=== PATIENT | female | born 1960 | race Caucasian/White ===

== ENCOUNTER 2020-02-08 13:24 | Emergency (ER) | payer OTHER ==
[~2020-02-08] VITALS: Ht 170.2 cm; Wt 97.1 kg
[~2020-02-08 13:24] MED LIST: BACLOFEN20 MG PO; BUTRANS1 EACH TD; LYRICA200 MG PO; METHOCARBAMOL750 MG PO; OXYCODONE HCL20 M1 PO; PROMETHAZINE HC25 M1 PO; PROZAC40 MG PO; SERTRALINE HCL50 MG PO; TRIAZOLAM0.125 MG PO
[2020-02-08] MEDS ORDERED: ONDANSETRON HCL INJ 2MG/ML 2ML 2 MG/ML VIAL IV STA (13:59)
[2020-02-08] MEDS ORDERED: MORPHINE SULFATE INJ 4 MG/ML INJ 1ML IV PRN (14:00)
[2020-02-08 14:11] LABS: BASOPHILS % 0.3 % (0.0-1.0); HEMATOCRIT 43.7 % (34.2-44.1); HEMOGLOBIN 13.4 g/dL (12.0-16.0); LYMPHOCYTES # (AUTO) 2.2 (1.0-3.2); LYMPHOCYTES % 20.4 % (18.0-39.1); MEAN CORPUSCULAR HEMOGLOBIN 25.1 pg (28-32); MEAN CORPUSCULAR HGB CONC 30.7 g/dL (31-35); MEAN CORPUSCULAR VOLUME 81.8 fL (81-99); MONOCYTES # (AUTO) 0.8 (0.2-0.8); MONOCYTES % 7.7 % (4.4-11.3); NEUTROPHILS # (AUTO) 7.7 (2.1-6.9); NEUTROPHILS % 71.2 % (38.7-80.0); PLATELET COUNT 223 x10e3/uL (140-360); RED BLOOD COUNT 5.34 x10e6/uL (3.6-5.1); RED CELL DISTRIBUTION WIDTH 17.1 % (11.7-14.4)
[2020-02-08] MEDS ORDERED: MORPHINE SULFATE 2 MG/ML SYR 1ML IV PRN (14:15)
[2020-02-08] MEDS ORDERED: DIATRIZOATE MEGL/DIATRIZOA SOD 30 ML BTL PO ONE (14:24)
[2020-02-08 14:28] LABS: ALANINE AMINOTRANSFERASE 12 IU/L (0-55); ALBUMIN 4.1 g/dL (3.5-5.0); ALBUMIN/GLOBULIN RATIO 1.4 (0.8-2.0); ALKALINE PHOSPHATASE 85 IU/L (40-150); AMYLASE 14 U/L (25-125); ANION GAP 15.4 mmol/L (8-16); BLOOD UREA NITROGEN 18 mg/dL (7-26); BUN/CREATININE RATIO 23 (6-25); CALCIUM 9.7 mg/dL (8.4-10.2); CARBON DIOXIDE 27 mmol/L (22-29); CHLORIDE 102 mmol/L (98-107); EST GLOMERULAR FILTRATION RATE > 60 ML/MIN (60-); GLUCOSE 132 mg/dL (74-118); LIPASE 10 U/L (8-78); POTASSIUM 4.4 mmol/L (3.5-5.1); SODIUM 140 mmol/L (136-145)
--- OUTSIDE RECORDS SUMMARY | 2020-02-08 15:19 | XMS REPORT | Continuity of Care Document ---
Author Author [facility] t Organization [facility] Address 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 Automatic Name Role Phone Hawk PATRICK, Manuel Horvath Attphys Robert Rankin Attphys Yulia Morrison Attphys Unavailable Dominga Ward Attphys Cherri Whittaker Attphys Unavailable Abby Alvarado Attphys Unavailable Doctor Unassigned, Name No Attphys Unavailable Lakshmi Rasmussen Attphys Unavailable Karin Alejandra Attphys Unavailable Lesly Eddy Attphys Status, Fax Attphys Unavailable LeonardEduardo sweeneyda Attphys Valero-SacAna doss Attphys Unavailable Marco, Candy Attphys Unavailable Suzanne Hodge Attphys Unavailable Dima Russell Attphys GurrolaGerhard mcrae Attphys Unavailable Satish, Zoe Attphys Unavailable Balbmikki, Zayda Attphys Abby Bro Attphys Unavailable JackmanRyan chowdhurylermo Attphys Unavailable Jeanine Freedman Attphys Unavailable Alphonse Mari Attphys BermudezVeena saldana Attphys Unavailable Valerio Lopez Attphys Unavailable Dima Russell Unavailable Robert Rankin Unavailable Alphonse Mari Unavailable Payers Payer Name Policy Type Policy Number Effective Date Expiration Date S ource Problems Condition Name Condition Details Condition Category Status Onset Date Resolution Date Last Treatment Date Treating Clinician Comments Source Danielle hirschhorn syndrome Condition Active 2017-10-29 00: 00:00 2017-10-29 16:01:13 Zakiya Russlel [facility] 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 12-09-25 15:55:[facility] DEPRESSIVE DISORDER, MAJOR, RECURRENT EPISODE, MODERATE Condition Active 2017-03-06 00:00:00 2017-10-29 15:55:46 Kamaljit [facility] Allergies, Adverse Reactions, Alerts Allergy Name Allergy Type Status Severity Reaction(s) Onset Date Inacti ve Date Treating Clinician Comments Source IBUPROFEN Drug allergy (disorder) Active 2017-06-04 00:00:0 0 [facility] PENICILLIN Drug allergy (disorder) Active High Criticality 2017-06-04 00:00:00 [facility] NSAIDS (Non-Steroidal Anti-Inflamma DA Active U 2015-10-06 9 00:00:00 [facility] Penicillins DA Active SV 2015-11-02 00:00:00 [facility] prednisone DA Active [place] 2015-11-02 00:00:00 [facility] ibuprofen DA Active MO 2015-11-02 00:00:00 [facility] naproxen DA Active [place] 2015-11-02 00:00:00 [facility] Social History Social Habit Start Date Stop Date Quantity Comments Source smoking, advice to quit 2019-12-29 15:35:43 2019-12-29 15:35:43 Yes [facility] tobacco use (cigarettes, cigar, chew, pipe) 2019-12-29 15:35 :43 2019-12-29 15:35:43 Currently [facility] social history reviewed E&M 2018-02-12 13:06:00 2018-02-12 13:06 :00 reviewed today [facility] social history E&M 2018-02-12 13:06:00 2018-02-12 13:06:00 ed, of 16 years 2013 after being deported. has 36 yo dtr, 27 yo son, 22 yo dtr (age as of 03/2017); cites her best friend as her primary support as well as her children City: [place]. State: [place]. Lives with son, son's gfNot employed. On disability 2/2 mental health concerns starting in 2000 Fin HS, no college Sex at : Female. Sexual orientation: Heterosexual. Gender identity: Female. Gender of partner(s): Male. [facility] drug use, illicit 2017-10-29 15:36:51 2017-10-29 15:36:51 Never [facility] alcohol use 2017-10-29 15:36:51 2017-10-29 15:36:51 Previously [facility] is there any chance that you could be ? 2017-10-29 1 5:36:51 2017-10-29 15:36:51 No [facility] passive cigarette smoke exposure 2017-10-29 15:36:51 2017-10-29 15:36 :51 No [facility] home/family situation, assessment 2017-06-04 09:59:59 2017-06-04 09:59:59 Lives with son, son's gf [facility] sexual orientation 2017-03-05 12:39:14 2017-03-05 12:39:14 Heterosexu al [facility] sex at 2017-03-05 12:39:14 2017-03-05 12:39:14 Female [facility] family support 2017-03-05 12:39:14 2017-03-05 12:39:14 , of 16 years 2013 after being deported. has 36 yo dtr, 27 yo son, 22 yo dtr (age as of 03/2017); cites her best friend as her primary support as well as her children [facility] Smoking Status Start Date Stop Date Source Smokes tobacco daily (finding) 2019-12-29 15:35:43 [facility] Medications Ordered Medication Name Filled Medication Name Start Date Stop Da te Current Medication? Ordering Clinician Indication Dosage Frequency Signature (SIG) Comments Components Source WELLBUTRIN SR (BUPROPION HCL) 100 MG [id number] 2018-08-19 00:00:00 Yes Robert Rankin 1{Tablet} 2xD Take 1 tab By Mouth Twice a Day [facility] (GABAPENTIN) 600 MG TABS 2018-06-13 00:00:00 Yes Stu Rankin 1{Tablet} 3xD TAKE 1 TABLET BY MOUTH THREE TIMES DAILY [facility] REMERON (MIRTAZAPINE) 15 MG TABS 2017-06-04 00:00:00 05-11 00:00:00 No Robert Alconevi Take 1/2 tablet By Mouth take at bed time [facility] PROZAC (FLUOXETINE HCL) 20 MG CAPS 2017-03-05 00:00:00 Y es Robert Rondonevi Take one capsule Twice a Day [facility] ATIVAN (LORAZEPAM) 0.5 MG TABS 2017-03-05 00:00:00 2018-02-12 00 :00:00 No Take 1/2 to 1 tab By Mouth Three Times a Day As Needed for extreme anxiety [facility] Vital Signs Vital Name Observation Time Observation Value Comments Source blood pressure, diastolic 2019-07-10 11:31:28 83 mm[Hg] [facility] blood pressure, systolic 2019-07-10 11:31:28 137 mm[Hg] [facility] pulse rate 2019-07-10 11:31:28 118 /min [facility] [employer] weight E&M 2019-07-10 11:31:28 257.50 [lb_av] [facility] weight in kilograms E&M 2019-07-10 11:31:28 117.05 kg [facility] height in centimeters E&M 2019-07-10 11:31:28 170.18 cm [facility] blood pressure, diastolic 2019-05-11 12:12:44 74 mm[Hg] [facility], systolic 2019-05-11 12:12:44 105 mm[Hg] [facility] pulse rate 2019-05-11 12:12:44 121 /min [facility] 2019-05-11 12:12:44 246.38 [lb_av] [facility] weight in kilograms E&M 2019-05-11 12:12:44 111.99 kg [facility] height in centimeters E&M 2019-05-11 12:12:44 170.18 cm [facility] blood pressure, diastolic 2019-03-11 13:36:33 86 mm[Hg] [facility] blood pressure, systolic 2019-03-11 13:36:33 145 mm[Hg] [facility] pulse rate 2019-03-11 13:36:33 123 /[facility] 2019-03-11 13:36:33 252 [lb_av] [facility] weight in [facility] E&M 2019-03-11 13:36:33 114.55 kg [facility] height in centimeters E&M 2019-03-11 13:36:33 170.18 cm [facility] blood pressure, diastolic 2019-01-14 13:10:30 86 mm[Hg] [facility] blood pressure, systolic 2019-01-14 13:10:30 123 mm[Hg] [facility] pulse rate 2019-01-14 13:10:30 127 /min [facility]&M 2019-01-14 13:10:30 248.50 [lb_av] [facility] weight in kilograms E&M 2019-01-14 13:10:30 112.95 kg [facility] height in centimeters E&M 2019-01-14 13:10:30 170.18 cm [facility] blood pressure, diastolic 2018-11-12 12:08:26 71 mm[Hg] [facility] blood pressure, systolic 2018-11-12 12:08:26 110 mm[Hg] [facility] 2018-11-12 12:08:26 118 [facility] E&M 2018-11-12 12:08:26 239.13 [lb_av] [facility] weight in kilograms E&M 2018-11-12 12:08:26 108.70 kg [facility] height in centimeters E&M 2018-11-12 12:08:26 170.18 [facility] E&M 2018-09-18 11:33:19 225.25 [lb_av] [facility] weight in kilograms E&M 2018-09-18 11:33:19 102.39 kg [facility] blood pressure, diastolic 2018-09-18 11:33:19 72 mm[Hg] [facility] blood pressure, systolic 2018-09-18 11:33:19 122 mm[Hg] [facility] pulse rate 2018-09-18 11:33:19 100 /min [facility] height in centimeters E&M 2018-09-18 11:33:19 170.18 cm [facility] blood pressure, diastolic 2018-08-19 11:02:24 82 mm[Hg] [facility], systolic 2018-08-19 11:02:24 120 mm[Hg] [facility] pulse rate 2018-08-19 11:02:24 113 /min [facility] weight E&M 2018-08-19 11:02:24 222.50 [lb_av] [facility] weight in kilograms E&M 2018-08-19 11:02:24 101.14 kg [facility] height in centimeters E&M 2018-08-19 11:02:24 170.18 cm [facility] blood pressure, diastolic 2018-07-17 14:28:59 84 mm[Hg] [facility], systolic 2018-07-17 14:28:59 127 mm[Hg] [facility] pulse rate 2018-07-17 14:28:59 118 /min [facility] weight E&M 2018-07-17 14:28:59 216.38 [lb_av] [facility] weight in kilograms E&M 2018-07-17 14:28:59 98.35 [facility] height in centimeters E&M 2018-07-17 14:28:59 170.18 cm [facility] blood pressure, diastolic 2018-05-12 14:05:20 61 mm[Hg] [facility] pressure, systolic 2018-05-12 14:05:20 147 mm[Hg] [facility] rate 2018-05-12 14:05:20 111 /min [facility] weight E&M 2018-05-12 14:05:20 198.50 [lb_av] [facility] weight in kilograms E&M 2018-05-12 14:05:20 90.23 kg [facility] height in centimeters E&M 2018-05-12 14:05:20 170.18 cm [facility] blood pressure, diastolic 2018-03-12 13:10:15 85 mm[Hg] [facility], systolic 2018-03-12 13:10:15 127 mm[Hg] [facility] pulse rate 2018-03-12 13:10:15 95 /min [facility] E&M 2018-03-12 13:10:15 200 [lb_av] [facility] weight in kilograms E&M 2018-03-12 13:10:15 90.91 kg [facility] height in centimeters E&M 2018-03-12 13:10:15 170.18 cm [facility] blood pressure, diastolic 2018-02-12 13:06:00 60 mm[Hg] [facility], systolic 2018-02-12 13:06:00 87 mm[Hg] [facility] 2018-02-12 13:06:00 102 /min [facility] weight E&M 2018-02-12 13:06:00 191 [lb_av] [facility] weight in kilograms E&M 2018-02-12 13:06:00 86.82 kg [facility] height in centimeters E&M 2018-02-12 13:06:00 170.18 cm [facility] blood pressure, diastolic 2017-12-25 11:52:08 72 mm[Hg] [facility] blood pressure, systolic 2017-12-25 11:52:08 101 mm[Hg] [facility] pulse rate 2017-12-25 11:52:08 109 /min [facility]&M 2017-12-25 11:52:08 195 [lb_av] [facility] weight in [facility] E&M 2017-12-25 11:52:08 88.64 kg [facility] height in centimeters E&M 2017-12-25 11:52:08 170.18 cm [facility] blood pressure, diastolic 2017-10-30 11:28:04 66 mm[Hg] [facility] blood pressure, systolic 2017-10-30 11:28:04 105 mm[Hg] [facility] pulse rate 2017-10-30 11:28:04 89 /min [facility] weight E&M 2017-10-30 11:28:04 194 [lb_av] [facility] E&M 2017-10-30 11:28:04 88.18 kg [facility] height in centimeters E&M 2017-10-30 11:28:04 170.18 cm [facility] oxygen saturation, oximetry 2017-10-29 15:36:51 95 % [facility] blood pressure, diastolic 2017-10-29 15:36:51 74 mm[Hg] [facility] blood pressure, systolic 2017-10-29 15:36:51 117 mm[Hg] [facility] respiratory rate E&M 2017-10-29 15:36:51 18 /min [facility] pulse rate 2017-10-29 15:36:51 100 /min [facility] site 2017-10-29 15:36:51 oral [facility] temperature E&M 2017-10-29 15:36:51 98.3 [degF] [facility] weight E&M 2017-10-29 15:36:51 193.80 [lb_av] [facility] weight in kilograms E&M 2017-10-29 15:36:51 88.09 kg [facility] height in centimeters E&M 2017-10-29 15:36:51 170.18 cm [facility] pressure, diastolic 2017-10-15 11:39:53 75 mm[Hg] [facility] pressure, systolic 2017-10-15 11:39:53 115 mm[Hg] [facility] pulse rate 2017-10-15 11:39:53 116 /min [facility] weight E&M 2017-10-15 11:39:53 195 [lb_av] [facility] in [facility] E&M 2017-10-15 11:39:53 88.64 kg [facility] height in centimeters E&M 2017-10-15 11:39:53 170.18 cm [facility] pressure, diastolic 2017-09-06 12:17:25 85 mm[Hg] [facility] pressure, systolic 2017-09-06 12:17:25 123 mm[Hg] [facility] 2017-09-06 12:17:25 76 /min [facility] weight E&M 2017-09-06 12:17:25 194.40 [lb_av] [facility] weight in kilograms E&M 2017-09-06 12:17:25 88.36 kg [facility] height in centimeters E&M 2017-09-06 12:17:25 170.18 cm [facility] pressure, diastolic 2017-08-09 12:24:27 75 mm[Hg] [facility] pressure, systolic 2017-08-09 12:24:27 109 mm[Hg] [facility] 2017-08-09 12:24:27 101 /min [facility] weight E&M 2017-08-09 12:24:27 194.80 [lb_av] [facility] weight in kilograms E&M 2017-08-09 12:24:27 88.55 kg [facility] height in centimeters E&M 2017-08-09 12:24:27 170.18 cm [facility] pressure, diastolic 2017-07-01 10:13:03 82 mm[Hg] [facility] pressure, systolic 2017-07-01 10:13:03 130 mm[Hg] [facility] 2017-07-01 10:13:03 105 /min [facility] E&M 2017-07-01 10:13:03 206 [lb_av] [facility] weight in kilograms E&M 2017-07-01 10:13:03 93.64 kg [facility] height in centimeters E&M 2017-07-01 10:13:03 170.18 cm [facility] blood pressure, diastolic 2017-06-04 09:59:59 72 mm[Hg] [facility] blood pressure, systolic 2017-06-04 09:59:59 103 mm[Hg] [facility] pulse rate 2017-06-04 09:59:59 91 /min [facility]&M 2017-06-04 09:59:59 207 [lb_av] [facility] in kilograms E&M 2017-06-04 09:59:59 94.09 kg [facility] height in centimeters E&M 2017-06-04 09:59:59 170.18 cm [facility] weight E&M 2017-04-09 11:00:30 214 [lb_av] [facility] E&M 2017-04-09 11:00:30 97.27 kg [facility] height in centimeters E&M 2017-04-09 11:00:30 170.18 cm [facility] height in centimeters E&M 2017-03-05 12:39:14 170.18 cm [facility] blood pressure, diastolic 2017-03-05 12:39:14 82 mm[Hg] [facility] blood pressure, systolic 2017-03-05 12:39:14 119 mm[Hg] [facility] pulse rate 2017-03-05 12:39:14 101 /min [facility] 2017-03-05 12:39:14 217.60 [lb_av] [facility] weight in kilograms E&M 2017-03-05 12:39:14 98.91 kg [facility] Procedures Procedure Date / Time Performed Performing Clinician Sour e Urinalysis - Dip only - In House 2017-10-29 15:48:14 Zakiya Russell [facility] Diagnostic evaluation with medical - [id number] 2017-03-06 08:43:43 L Alphonse [facility] Encounters Start Date/Time End Date/Time Encounter Type Admission Type [facility] Care Department Encounter ID Source 2020-01-06 00:00:00 2020-01-06 00:00:00 Telephone Hawk Alexandru [facility] [id number] 2020-01-05 00:00:00 2020-01-05 00:00:00 [facility] [id number] 2019-12-29 00:00:00 2019-12-29 00:00:00 Office Visit Gomez Rankin [facility] Encounter/[id number] [facility] 2019-12-16 10:12:51 2019-12-16 10:42:51 Telemedicine [facility] [id number] 2019-11-30 00:00:00 2019-11-30 00:00:00 [facility] [id number] 2019-11-18 10:19:01 2019-11-18 10:49:01 Telemedicine [facility] [id number] 2019-11-11 00:00:00 2019-11-11 00:00:00 [facility]phone [facility] [id number] 2019-11-05 00:00:00 2019-11-05 00:00:00 Office Visit Gomez Rankin [facility][id number] [facility] 2019-11-05 00:00:00 2019-11-05 00:00:00 Office Visit MorrisonPriyankae [facility] Encounter/[id number] [facility] 2019-09-09 00:00:00 2019-09-09 00:00:00 Office Visit Gomez Rankin [facility]/[id number] [facility] 2019-08-17 00:00:00 2019-08-17 00:00:00 Office Visit Harsh Ward [facility][id number] [facility] 2019-08-05 00:00:00 2019-08-05 00:00:00 Office Visit Dominga Wang Jose E [facility] Encounter/[id number] [facility] 2019-07-10 00:00:00 2019-07-10 00:00:00 Office Visit Gomez Rankin [facility][id number] [facility] 2019-07-10 00:00:00 2019-07-10 00:00:00 Office Visit Robert Burris Nancy [facility] Encounter/[id number] [facility] 2019-07-06 00:00:00 2019-07-06 00:00:00 Office Visit Harsh Ward [facility] Encounter/[id number] [facility] 2019-06-16 00:00:00 2019-06-16 00:00:00 Office Visit Gomez Rankin [facility] En[facility][id number] [facility] 2019-06-12 00:00:00 2019-06-12 00:00:00 Orders Only Kamari german Unassigned, [place] [facility] [id number] 2019-05-20 11:14:16 2019-05-20 12:01:27 Office Visit Alexandru Sheth [facility] [id number] 2019-05-11 00:00:00 2019-05-11 00:00:00 Office Visit Gomez Rankin [facility] Encounter/[id number] [facility] 2019-05-11 00:00:00 2019-05-11 00:00:00 Office Visit Robert Burris Nancy [facility] Encounter/[id number] [facility] 2019-05-07 00:00:00 2019-05-07 00:00:00 Office Visit Robert Burris Nancy Campbell, Mary N [facility] Encounter/[id number] [facility] 2019-03-11 00:00:00 2019-03-11 00:00:00 Office Visit Gomez Rankin [facility] Encounter/[id number] [facility] 2019-03-11 00:00:00 2019-03-11 00:00:00 Office Visit Robert Burris Nancy [facility] Encounter/[id number] [facility] 2019-02-10 00:00:00 2019-02-10 00:00:00 Office Visit Gomez Rankin [facility] Encounter/[id number] [facility] 2019-02-02 00:00:00 2019-02-02 00:00:00 Office Visit Harsh Ward [facility] Encounter/[id number] [facility] 2019-01-16 00:00:00 2019-01-16 00:00:00 Office Visit Abby Dunham Christine [facility] Encounter/[id number] [facility] 2019-01-14 00:00:00 2019-01-14 00:00:00 Office Visit Gomez Rankin aedima [facility] Encounter/[id number] [facility] 2019-01-14 00:00:00 2019-01-14 00:00:00 Office Visit Chucho Gomez nuriadima [facility] Encounter/[id number] [facility] 2019-01-14 00:00:00 2019-01-14 00:00:00 Office Visit Roebrt Burris Nancy [facility] Encounter/[id number] [facility] 2018-12-23 00:00:00 2018-12-23 00:00:00 Office Visit Kevin Alvarado y [facility] Encounter/[id number] [facility] 2018-12-11 00:00:00 2018-12-11 00:00:00 Office Visit Robert Burris Dalila Govea, Nancy [facility] Encounter/[id number] [facility] 2018-11-12 00:00:00 2018-11-12 00:00:00 Office Visit Alconevi Gomez amos [facility] Encounter/[id number] [facility] 2018-11-12 00:00:00 2018-11-12 00:00:00 Office Visit Robert Burris Nancy [facility] Encounter/[id number] [facility] 2018 00:00:00 2018 00:00:00 Office Visit Gomez Rankin [facility] Encounter/[id number] [facility] 2018-09-18 00:00:00 2018-09-18 00:00:00 Office Visit Gomez Rankin [facility] Encounter/[id number] [facility] 2018-09-18 00:00:00 2018-09-18 00:00:00 Office Visit Robert Burris Dalila [facility] Encounter/[id number] [facility] 2018-09-04 00:00:00 2018-09-04 00:00:00 Office Visit Ivon Roberto [facility] Encounter/[id number] [facility] 2018-08-19 00:00:00 2018-08-19 00:00:00 Office Visit Alconevi Gomez amos [facility] Encounter/[id number] [facility] 2018-08-19 00:00:00 2018-08-19 00:00:00 Office Visit Gomez Rankin [facility] Encounter/[id number] [facility] 2018-08-19 00:00:00 2018-08-19 00:00:00 Office Visit Robert Burris Nancy [facility] Encounter/[id number] [facility] 2018-08-05 00:00:00 2018-08-05 00:00:00 Office Visit Gomez Rankin [facility] Encounter/[id number] [facility] 2018-07-30 00:00:00 2018-07-30 00:00:00 Office Visit Kendra Mejia [facility] Encounter/[id number] [facility] 2018-07-17 00:00:00 2018-07-17 00:00:00 Office Visit AlconGomez steve [facility] Encounter/[id number] [facility] 2018-07-17 00:00:00 2018-07-17 00:00:00 Office Visit Robert Burris Nancy [facility] Encounter/[id number] [facility] [facility]-24 00:00:00 2018-06-24 00:00:00 Office Visit Robert Burris Nancy Arteaga-Sachnik, Maria Jones, Christine [facility] LC Encounter/[id number] Former[facility] 2018-06-19 00:00:00 2018-06-19 00:00:00 Office Visit Ana Garcia LC Encounter/[id number] [facility] 2018-06-16 00:00:00 2018-06-16 00:00:00 Office Visit Ana Garcia [facility] Encounter/[id number] [facility] 2018-06-16 00:00:00 2018-06-16 00:00:00 Office Visit Robert Burris Nancy Arteaga-Sachnik, Maria LC LC Encounter/[id number] 2018-06-06 00:00:00 2018-06-06 00:00:00 Office Visit Robert Burris Nancy Asencio, Patricia LC LC Encounter/[id number] [facility] 2018-05-13 00:00:00 2018-05-13 00:00:00 Office Visit Lesly Gresham Nancy Arteaga-Sachnik, Maria LC LC Encounter/[id number] 2018-05-12 00:00:00 2018-05-12 00:00:00 Office Visit Gomez Rankin LC Encounter/[id number] [facility] 2018-05-12 00:00:00 2018-05-12 00:00:00 Office Visit Robert Burris Nancy LC LC Encounter/[id number] [facility] 2018-05-08 00:00:00 2018-05-08 00:00:00 Office Visit Gomez Rankin [facility] LC Encounter/[id number] [facility] 2018-05-07 00:00:00 2018-05-07 00:00:00 Office Visit Robert Burris Dalila Govea, Nancy LC LC Encounter/[id number] [facility] 2018-03-12 00:00:00 2018-03-12 00:00:00 Office Visit Gomez Rankin [facility] LC Encounter/[id number] [facility] 2018-03-12 00:00:00 2018-03-12 00:00:00 Office Visit Robert Burris Dalila [facility] Encounter/[id number] [facility] 2018-03-03 00:00:00 2018-03-03 00:00:00 Office Visit Robert Burris Dalila ArteagaJoseloAna Contreras LC [facility] Encounter/[id number] 2018-02-17 00:00:00 2018-02-17 00:00:00 Office Visit Robert BurrisCandy LC [facility] Encounter/[id number] [facility] 2018-02-12 00:00:00 2018-02-12 00:00:00 Office Visit Gomez Rankin [facility] Encounter/[id number] [facility] 2018-02-12 00:00:00 2018-02-12 00:00:00 Office Visit Robert Burris Dalila LC [facility] Encounter/[id number] [facility] 2018-02-04 00:00:00 2018-02-04 00:00:00 Office Visit Robert Burris Grace Jones, Christine [facility] Encounter/[id number] [facility] 2018-01-07 00:00:00 2018-01-07 00:00:00 Office Visit Robert Burris Christine LC [facility] Encounter/[id number] [facility] 2017-12-25 00:00:00 2017-12-25 00:00:00 Office Visit Gomez Rankin LC [facility] Encounter/[id number] [facility] 2017-12-25 00:00:00 2017-12-25 00:00:00 Office Visit Robert Burris Grace LC [facility] Encounter/[id number] [facility] 2017-10-30 00:00:00 2017-10-30 00:00:00 Office Visit Gomez Rankin [facility] Encounter/[id number] [facility] 2017-10-30 00:00:00 2017-10-30 00:00:00 Office Visit Status, Fax [facility] Encounter/[id number] [facility] 2017-10-30 00:00:00 2017-10-30 00:00:00 Office Visit Status, Fax [facility] Encounter/[id number] [facility] 2017-10-30 00:00:00 2017-10-30 00:00:00 Office Visit Ivon Roberto LC [facility] Encounter/[id number] [facility] 2017-10-30 00:00:00 2017-10-30 00:00:00 Office Visit Gomez Rankin LC [facility] Encounter/[id number] [facility] 2017-10-30 00:00:00 2017-10-30 00:00:00 Office Visit Robert Burris Grace LC [facility] Encounter/[id number] [facility] 2017-10-29 00:00:00 2017-10-29 00:00:00 Office Visit Zakiya Anne LC [facility] Encounter/[id number] [facility] 2017-10-29 00:00:00 2017-10-29 00:00:00 Office Visit Zakiya Anne LC [facility] Encounter/[id number] [facility] 2017-10-29 00:00:00 2017-10-29 00:00:00 Office Visit Zakiya Hernandez Hilda Granados, Saralee Vasquez, Adriana LC [facility] Encounter/[id number] [facility] 2017-10-28 00:00:00 2017-10-28 00:00:00 Office Visit Gomez Rankin LC [facility] Encounter/[id number] [facility] 2017-10-28 00:00:00 2017-10-28 00:00:00 Office Visit Robert Burris Maritza LC [facility] Encounter/[id number] [facility] 2017-10-15 00:00:00 2017-10-15 00:00:00 Office Visit Gomez Rankin LC [facility] Encounter/[id number] [facility] 2017-10-15 00:00:00 2017-10-15 00:00:00 Office Visit Robert Burris Grace LC [facility] Encounter/[id number] [facility] 2017-09-06 00:00:00 2017-09-06 00:00:00 Office Visit Robert Burris Grace Perez, Nancy LC LC Encounter/[id number] [facility] 2017-09-06 00:00:00 2017-09-06 00:00:00 Office Visit Gomez Rankin LC [facility] Encounter/[id number] [facility] 2017-09-06 00:00:00 2017-09-06 00:00:00 Office Visit Robert Burris Maritza LC [facility] Encounter/[id number] [facility] 2017-08-09 00:00:00 2017-08-09 00:00:00 Office Visit Gomez Rankin LC [facility] Encounter/[id number] [facility] 2017-08-09 00:00:00 2017-08-09 00:00:00 Office Visit Robert Burris Grace [facility] Encounter/[id number] [facility] 2017-08-09 00:00:00 2017-08-09 00:00:00 Office Visit Gomez Rankin LC [facility] Encounter/[id number] [facility] 2017-08-09 00:00:00 2017-08-09 00:00:00 Office Visit B Robert antunez Grace LC [facility] Encounter/[id number] [facility] 2017-08-06 00:00:00 2017-08-06 00:00:00 Office Visit Robert Burris Grace Mejia, Guillermo LC [facility] Encounter/[id number] [facility] 2017-07-05 00:00:00 2017-07-05 00:00:00 Office Visit Robert Burris Maritza Mejia, Guillermo LC [facility] Encounter/[id number] [facility] 2017-07-01 00:00:00 2017-07-01 00:00:00 Office Visit Gomez Rankin LC [facility] Encounter/[id number] [facility] 2017-07-01 00:00:00 2017-07-01 00:00:00 Office Visit Robert Burris Grace [facility] LC Encounter/[id number] [facility] 2017-06-04 00:00:00 2017-06-04 00:00:00 Office Visit Gomez Rankin LC [facility] Encounter/[id number] [facility] 2017-06-04 00:00:00 2017-06-04 00:00:00 Office Visit B Robert antunez Grace [facility] Encounter/[id number] [facility] 2017-05-23 00:00:00 2017-05-23 00:00:00 Office Visit Robert Burris Amairani [facility] Encounter/[id number] [facility] 2017-04-10 00:00:00 2017-04-10 00:00:00 Office Visit Robert Burris Grace Larkins, Damien [facility] LC Encounter/[id number] [facility] 2017-04-09 00:00:00 2017-04-09 00:00:00 Office Visit Alphonse Ervin Jessenia [facility] LC Encounter/[id number] [facility] 2017-03-05 00:00:00 2017-03-05 00:00:00 Office Visit Delfin Mari [facility] LC Encounter/[id number] [facility] 2017-03-05 00:00:00 2017-03-05 00:00:00 Office Visit Delfin Mari [facility] Encounter/[id number] [facility] 2017-03-05 00:00:00 2017-03-05 00:00:00 Office Visit Alphonse Ervin Emmanuel [facility] LC Encounter/[id number] [facility] 2017-02-20 00:00:00 2017-02-20 00:00:00 Office Visit Suzanne Hodge [facility] LC Encounter/[id number] [facility] Results Test Description Test Time Test Comments Results Result Comments Source GLUBED 2019-07-14 09:43:00 Test Item GLUBED (test code = GLUBED) 224 MG/DL 70-110 H Performed by certified numerical control drill press operator at [facility] - US SOFT TISSUE [id number] 08:50:00 Name: JUVENCIO NAIK [place] : 1960 Age/S: 58 / F [address] [place] [address] Blvd Unit #: [id number] Loc: [place] [address] Phys: Alejo Islas MD Acct: [id number] Dis Date: Status: ADM IN PHONE #: [phone] Exam Date: 07/13/2019827 FAX #: [phone] Reason: SWELLING IN THE ANT ABDOMINAL WALL, TENDER EXAMS: CPT CODE: [id number] US SOFT TISSUE TORSO 40209 Clinical Indication: SWELLING IN THE ANT ABDOMINAL WALL, TENDER; Comparison: CT July 12, 2019 : 1960; Age: 58 years y/o Female TECHNIQUE: Sonographic evaluation of the anterior abdominal wall is performed Impression: Anterior abdominal wall area of swelling/tenderness show fat-containing hernia with neck measuring up to 2.7 cm. Underlying inflammatory process cannot be excluded. SL: [id number] at 0850 Reported and signed by: Stella Ramsay D.O. CC: Alejo Islas MD Technologist: Mel Russell Trnscb Date/Time: 07/13/2019 (0850) [email or web address] Orig Print D/T: S: 07/13/2019 (7951) Probe: PAGE 1 Signed Report TSH REFLEX TO [id number] 06:26:00* Test Item Value Reference Range Interpretation Comments TSH REFLEX TO FT4 (test code = TSHREFLEX) 2.88 IU/mL 0.42-5.47 N HGBA1C%2019-07-13 06:14:00* Test Item Value Reference Range Interpretation Comments HGBA1C% (test code = HGBA1C%) 7.8 %A1C 4.8-6.0 H BASIC METABOLIC [id number] 06:14:00* Test Item Value Reference Range Interpretation Comments SODIUM (test code = NA) 136 mEq/L 134-147 N POTASSIUM (test code = K) 5.6 mEq/L 3.4-5.0 H SP ECIMEN 2+ HEMOLYZED.Results known to be adversely affected by hemolysis are: Potassium Magnesium LDH Phosphorus CHLORIDE (test code = CL) 101 mEq/L 100-108 N CARBON DIOXIDE (test code = CO2) 33 mEq/L 21-33 N ANION GAP (test code = GAP) 8 0-20 N GLUCOSE (test code = GLU) 146 mg/dL 70-110 H BLOOD UREA NITROGEN (test code = BUN) 21 mg/dL 7-18 H GLOMERULAR FILTRATION RATE (test code = GFR) 73.4 90-95 L Units of measure = ml/min/1.73 m2 CREATININE (test code = CREAT) 0.8 mg/dL 0.6-1.3 N CALCIUM (test code = CA) 8.2 mg/dL 8.0-10.5 N [id number] 06:14:00* Test Item Value Reference Range Interpretation Comments PHOSPHOROUS (test code = PHOS) 5.0 MG/DL 2.5-4.9 H [id number] 06:14:00* Test Item Value Reference Range Interpretation Comments MAGNESIUM (test code = MAG) 2.20 mg/dL 1.8-2.4 N CBC W/AUTO [id number] 05:38:00* Test Item Value Reference Range Interpretation Comments WHITE BLOOD CELL (test code = WBC) 7.08 x10 3/uL 4.5-11.0 N RED BLOOD CELL (test code = RBC) 4.38 x10 6/uL 3.54-5.02 N HEMOGLOBIN (test code = HGB) 12.1 g/dL 11.0-15.0 N HEMATOCRIT (test code = HCT) 38.6 % 33.0-45.0 N MEAN CELL VOLUME (test code = MCV) 88.1 fL 81.0-99.0 N MEAN CELL HGB (test code = MCH) 27.6 pg 27.0-33.0 N MEAN CELL HGB CONCETRATION (test code = MCHC) 31.3 g/dL 33.0-37. 0 L RED CELL DISTRIBUTION WIDTH CV (test code = RDW) 15.1 % 11.5- 14.5 H RED CELL DISTRIBUTION WIDTH SD (test code = RDW-SD) 48.7 fL 37 .0-54.0 N PLATELET COUNT (test code = PLT) 216 x10 3/uL 150-400 N MEAN PLATELET VOLUME (test code = MPV) 10.1 fL 7.0-9.0 H NEUTROPHIL % (test code = NT%) 60.7 % 56.0-77.0 N IMMATURE GRANULOCYTE % (test code = IG%) 0.4 % 0.0-2.0 N LYMPHOCYTE % (test code = LY%) 28.5 % 14.0-32.0 N MONOCYTE % (test code = MO%) 9.6 % 4.8-9.0 H EOSINOPHIL % (test code = EO%) 0.1 % 0.3-3.7 L BASOPHIL % (test code = BA%) 0.7 % 0.0-2.0 N NUCLEATED RBC % (test code = NRBC%) 0.0 % 0-0 N NEUTROPHIL # (test code = NT#) 4.29 x10 3/uL 2.0-7.6 N IMMATURE GRANULOCYTE # (test code = IG#) 0.03 x10 3/uL 0.00-0.03 N LYMPHOCYTE # (test code = LY#) 2.02 x10 3/uL 1.0-3.8 N MONOCYTE # (test code = MO#) 0.68 x10 3/uL 0.1-0.8 N EOSINOPHIL # (test code = EO#) 0.01 x10 3/uL 0.0-0.2 N BASOPHIL # (test code = BA#) 0.05 x10 3/uL 0.0-0.2 N NUCLEATED RBC # (test code = NRBC#) 0.00 x10 3/uL 0.0-0.1 N MANUAL DIFF REQUIRED (test code = MDIFF) NO - DUP VEIN UNI/[id number] 19:57:00 Name: JUVENCIO NAIK [facility] : 1960 Age/S: 58 / F [address] [place] [address] Unit #: [id number] Loc: [place] [address] Phys: Radha Cervantes MD Acct: [id number] Dis Date: Status: ADM IN PHONE #: [phone] Exam Date: 07/12/20191948 FAX #: [phone] Reason: acute RLE pain EXAMS: CPT CODE: [id number] DUP VEIN UNI/LTD 18324 Procedure: Right Lower Extremity Doppler Venous Ultrasound: Clinical Indication: Right lower extremity pain. Comparison: Right lower extremity Doppler venous ultrasound 09/17/2014. TECHNIQUE: Sonographic evaluation of the right lower extremity veins was performed using high resolution B-mode, pulse and color Doppler imaging. FINDINGS: The common femoral, femoral, popliteal and visualized calf veins are patent. Normal venous waveforms. The saphenofemoral junction is unremarkable. IMPRESSION: No deep venous thrombosis. SL: OCO-H at 1956 Reported and signed by: Dannie Krueger M.D. CC: Radha Cervantes MD Technologist: Andrew Soto RDMS() Trnscb Date/Time: 07/12/2019 (1956) [email or web address] Orig Print D/T: S: 07/12/2019 (1999) Probe: PAGE 1 Signed Report DRUGS OF ABUSE SCREEN [id number] 18:42:00* Test Item Value Reference Range Interpretation Comments URN COCAINE (test code = COCAURN) NEGATIVE NEGATIVE URN CANNABINOIDS (test code = CANNABURN) NEGATIVE NEGATIVE URN AMPHETAMINE (test code = AMPHETURN) NEGATIVE NEGATIVE URN BARBITURATE (test code = BARBITURN) NEGATIVE NEGATIVE URN BENZODIAZEPINE (test code = BENZOURN) NEGATIVE NEGATIVE Cut-off value:200 ng/mL URN OPIATES (test code = OPIATURN) POSITIVE NEGATIVE A Cut-off value:2000 ng/mL URN PHENCYCLIDINE (PCP) (test code = PHENCURN) NEGATIVE NEGATIV E Cutoffs:Barbiturates 200 ng/mLBenzodiazepines 200 ng/mLTHC Cannabinoids 50 ng/mLOpiates(Morphine) 2000 ng/mLAmphetamine 1000 ng/mLCocaine 300 ng/mLPCP phencyclidine 25 ng/mL Unconfirmed screening results shouldnot be used for non-medical purposes. UA RFLX MICR CULT IF [id number] 18:34:00* Test Item Value Reference Range Interpretation Comments UA COLOR (test code = COLU) YELLOW YEL/STRAW UA APPEARANCE (test code = APPU) SL CLOUDY CLEAR UA GLUCOSE DIPSTICK (test code = DGLUU) NEGATIVE NEGATIVE UA BILIRUBIN DIPSTICK (test code = BILU) NEGATIVE NEGATIVE UA KETONE DIPSTICK (test code = KETU) NEGATIVE NEGATIVE UA SPECIFIC GRAVITY (test code = SGU) 1.055 1.005-1.030 H UA BLOOD DIPSTICK (test code = DARIO) NEGATIVE NEGATIVE UA PH DIPSTICK (test code = DONNELL) 6.0 5.0-7.0 N UA PROTEIN DIPSTICK (test code = PROU) NEGATIVE NEGATIVE UA UROBILINIOGEN DIPSTICK (test code = URO) 0.2 mg/dL 0.2-1.0 UA NITRITE DIPSTICK (test code = PAU) NEGATIVE NEGATIVE UA LEUKOCYTE ESTERASE DIPSTICK (test code = LEUU) NEGATIVE NEGA TIVE UA WBC (test code = WBCU) 0-3 WBC/HPF 0-3 UA RBC (test code = RBCU) 0-3 RBC/HPF 0-3 UA WBC NO REFLEX (test code = WBCUCL) 0-3 WBC/HPF 0-3 UA BACTERIA (test code = BACU) NONE SEEN /HPF NONE SEEN UA SQUAMOUS CELLS (test code = SQU) 6-10 /HPF NONE SEEN A UA MUCUS (test code = MUCU) TRACE /LPF NONE SEEN Indication for culture: Dysuria/FrequencySpecimen Description: CLEAN CATCH DRUGS OF ABUSE SCREEN [id number] 18:30:00* Test Item Value Reference Range Interpretation Comments URN COCAINE (test code = COCAURN) NEGATIVE NEGATIVE URN CANNABINOIDS (test code = CANNABURN) NEGATIVE NEGATIVE URN AMPHETAMINE (test code = AMPHETURN) NEGATIVE NEGATIVE URN BARBITURATE (test code = BARBITURN) NEGATIVE NEGATIVE URN BENZODIAZEPINE (test code = BENZOURN) NEGATIVE NEGATIVE Cut-off value:200 ng/mL URN OPIATES (test code = OPIATURN) NEGATIVE URN PHENCYCLIDINE (PCP) (test code = PHENCURN) NEGATIVE NEGATIV E Cutoffs:Barbiturates 200 ng/mLBenzodiazepines 200 ng/mLTHC Cannabinoids 50 ng/mLOpiates(Morphine) 2000 ng/mLAmphetamine 1000 ng/mLCocaine 300 ng/mLPCP phencyclidine 25 ng/mL Unconfirmed screening results shouldnot be used for non-medical purposes. - CT ABD PELVIS W/[id number] 18:01:00 Name: JUVENCIO NAIK [facility] [place] [facility] : 1960 Age/S: 58 / F [address] [place] [address] Unit #: [id number] Loc: [place] [address] Phys: Radha Cervantes MD Acct: [id number] Dis Date: Status: REG ER PHONE #: [phone] Exam Date: 07/12/2019 1707 FAX #: [phone] Reason: acute abd pain distention EXAMS: CPT CODE: [id number] CT ABD PELVIS W/CONT 51806 Clinical Indication: acute abd pain distention Comparison: 07/26/2016 TECHNIQUE: Helical imaging was performed after injection of IV contrast, from the lung base through the symphysis with multiplanar reformations obtained. IV CONTRAST: 100 mL of Isovue-300 GI CONTRAST: Oral contrast was administered. DLP: 880 mGy-cm FINDINGS: CT ABDOMEN AND PELVIS WITH CONTRAST: LUNG BASE: Several large bulla are seen in the right lung base. Atelectasis is also seen in the right lung base. LIVER: The liver is enlarged measuring 19.7 cm in cranial to caudal dimension. The liver parenchyma is normal in appearance without masses or intrahepatic biliary ductal dilatation. The portal vein is normal in david iber. BILIARY TREE: The common bile duct is normal in caliber with out evidence of filling defects. GALLBLADDER: The gallbladde r is unremarkable, there is no evidence of cholelithiasis or cholecystitis . PANCREAS: The pancreas is unremarkable. The pancreatic duct is n ormal in caliber. SPLEEN: The spleen is normal in size and t here are no parenchymal abnormalities. ADRENALS: The right a drenal gland is unremarkable. The left adrenal gland is unremarkable. KIDNEYS: The kidneys demonstrates normal contrast enhancement. There are no masses. There is no evidence of renal or ureteral calculi. T here is no evidence of hydronephrosis. BOWEL: The visualized porti on of the esophagus is unremarkable. The stomach is unremarkable. The sm all bowel is normal in caliber and there is no evidence of masses or obstr uction. The colon is normal in caliber without any masses. Moderate amoun t of stool is seen in the PAGE 1 Signed Report (CONTINUED) Name: JUVENCIO NAIK : 1960 Age/S: 58 / F [address] [place] [address] Unit #: [id number] Loc: [place] [address] Phys: Radha Cervantes MD Acct: [id number] Dis Date: Status: REG ER PHONE #: [phone] Exam Date: 07/12/2019 1707 FAX #: [phone] Reason: acute abd pain distention EXAMS: CPT CODE: [id number] CT ABD PELVIS W/CONT 11990 < Continued> colon. APPENDIX: The appendix is unremarkable. PELVIS: There are no pelvic masses. The urinary bladder is unremarkable. The uterus is not visualized. PERITONEUM: There is no evidence for free intraperitoneal fluid or air. SOFT TISSUES: The soft tissues are unremarkable. A small umbilical hernia containing fat is present. LYMPH NODES: There is no evidence of mesenteric, retroperitoneal, or inguinal lymphadenopathy. VASCULATURE: The abdominal aorta is normal in caliber. The branches of the abdominal aorta are widely patent. MUSCULOSKELETAL: The visualized bony skeleton is unremarkable. IMPRESSION: 1. No acute findings in abdomen and pelvis. 2. Hepatomegaly. 3. Normal appendix. 4. Constipation. 5. Hysterectomy. SL: EDILBERTOH at 1801 Reported and signed by: Davin Vila M.D. CC: Radha Cervantes MD Technologist:Tuyet Resendez RT(R)(CT) CTDI: DLP: Trnscb Date/Time: 07/12/2019 (180) [email or web address] Orig Print D/T: S: 07/12/2019 (180) PAGE 2 Signed Report - XR CHEST 2 [id number] 17:18:00 FAX: Radha Treadwell MD [phone] [place]: St: REG [facility] : [birth year] Age/S: 58/F [address] [place] [address] Unit #: [id number] Loc: [place] [place] [address] Phys: Radha Cervantes MD Acct: [id number] Dis Date: Status: REG ER PHONE #: [phone] Exam Date: 07/12/20191715 FAX #: [phone] Reason: acute CP SOB EXAMS: CPT CODE: [id number] XR CHEST 2 V 79047 Two-view chest. KIMBERLEY CATION: Acute chest pain and shortness of breath. Abdominal pain. COMPARISON: 07/21/2017 chest radiograph FINDINGS: Patient body hab itus limits evaluation. The cardiomediastinal silhouette is mildly enlarg ed. Lucent well inflated lungs once again seen. The lungs are clear. No pleural effusion identified. No acute bony finding identified. IMPRESSION: Emphysematous chest. No acute pulmonary findings. SL: LITOH at 1718 Reported and signed by: Yong Garg M.D. CC: Radha Cervantes MD Technologist : RT Areli(R) Trnscrd Date/Time/By: 0 07/12/2019 (1717) : By: [email or web address] Orig Print D/T: S: 07/12/2019 (1995) PAGE 1 Signed Report LACTIC [id number] 16:43:00* Test Item Value Reference Range Interpretation Comments LACTIC ACID (test code = LACT) 0.8 mmol/L 0.4-1.9 N PROTHROMBIN [id number] 16:23:00* Test Item Value Reference Range Interpretation Comments PROTHROMBIN TIME PATIENT (test code = PTP) 10.5 SECONDS 9.3-12.9 N INTERNATIONAL NORMAL RATIO (test code = INR) 1.0 0.8-1.2 N TARGET INR BY INDICATION Indication INR1. Prophylaxis of venous thrombosis 2.0 - 3.0 (orthopedic surgery), Prophylaxis of venous thrombosis (other than high-risk surgery), Treatment of Deep Vein Thrombosis/Pulmonary Embolism, Prevention of systemic embolism - Tissue heart valves, Acute Myocardial Infarction (to prevent systemic embolism), Valvular heart disease, Atrial Fibrillation, Bileaflet mechanical valve in aortic position.2. Mechanical prosthetic valves (high risk), 2.5 - 3.5 Presence of Lupus Anticoagulant or Antiphospholipid Antibodies, Prevention of systemic embolism - Acute Myocardial Infarction (to prevent recurrent infarct). THROMBOPLASTIN TIME [id number] 16:23:00* Test Item Value Reference Range Interpretation Comments THROMBOPLASTIN TIME PARTIAL (test code = PTT) 35.4 Seconds 25.0-39. 5 N Therapeutic Range: 50.4 - 88.3 Seconds Effective 08/19/2018 BASIC METABOLIC [id number] 16:20:00* Test Item Value Reference Range Interpretation Comments SODIUM (test code = NA) 138 mEq/L 134-147 N POTASSIUM (test code = K) 4.3 mEq/L 3.4-5.0 N CHLORIDE (test code = CL) 103 mEq/L 100-108 N CARBON DIOXIDE (test code = CO2) 32 mEq/L 21-33 N ANION GAP (test code = GAP) 7 0-20 N GLUCOSE (test code = GLU) 159 mg/dL 70-110 H BLOOD UREA NITROGEN (test code = BUN) 19 mg/dL 7-18 H GLOMERULAR FILTRATION RATE (test code = GFR) 73.4 90-95 L Units of measure = ml/min/1.73 m2 CREATININE (test code = CREAT) 0.8 mg/dL 0.6-1.3 N CALCIUM (test code = CA) 8.5 mg/dL 8.0-10.5 N HEPATIC FUNCTION [id number] 16:20:00* Test Item Value Reference Range Interpretation Comments TOTAL PROTEIN (test code = PROT) 7.2 g/dL 6.4-8.2 N ALBUMIN (test code = ALB) 3.60 g/dL 3.4-5.0 N BILIRUBIN TOTAL (test code = BILT) 0.2 MG/DL <1.5 N BILIRUBIN DIRECT (test code = BILD) < 0.10 MG/DL 0.0-0.30 BILIRUBIN INDIRECT (test code = BILIND) 0.10 MG/DL SGOT/AST (test code = AST) 19 IUnit/L 15-37 N SGPT/ALT (test code = ALT) 17 IUnit/L 15-65 N ALKALINE PHOSPHATASE TOTAL (test code = ALKP) 171 IUnit/L 20-125 H [id number] 16:20:00* Test Item Value Reference Range Interpretation Comments LIPASE (test code = LIP) 100 IUnit/L 73-393 N HCG SERUM [id number] 16:20:00* Test Item Value Reference Range Interpretation Comments HCG SERUM QUAL (test code = HCGQL) SERUM NEGATIVE NEGATIVE TROPONIN-I [id number] 16:17:00* Test Item Value Reference Range Interpretation Comments TROPONIN-I RAPID (test code = TROPIRAP) 0.00 ng/mL 0.00-0.08 N Performed by certified numerical control drill press operator at [facility] Negative: <= 0.08 Positive: >= 0.09An elevated troponin value alone is not sufficient todiagnose a myocardial infarction. Rather, the patient sclinical presentation (history, physical exam) and ECGshould be used in conjunction with troponin in thediagnostic evaluation of suspected myocardial infarction. Aserial sampling protocol is recommended to facilitate the identification of temporal changes in troponin levels characteristic of [place]. BASIC METABOLIC [id number] 16:11:00* Test Item Value Reference Range Interpretation Comments SODIUM (test code = NA) mEq/L 134-147 POTASSIUM (test code = K) mEq/L 3.4-5.0 CHLORIDE (test code = CL) mEq/L 100-108 CARBON DIOXIDE (test code = CO2) mEq/L 21-33 ANION GAP (test code = GAP) 0-20 GLUCOSE (test code = GLU) mg/dL 70-110 BLOOD UREA NITROGEN (test code = BUN) mg/dL 7-18 GLOMERULAR FILTRATION RATE (test code = GFR) 90-95 CREATININE (test code = CREAT) mg/dL 0.6-1.3 CALCIUM (test code = CA) mg/dL 8.0-10.5 HEPATIC FUNCTION [id number] 16:11:00* Test Item Value Reference Range Interpretation Comments TOTAL PROTEIN (test code = PROT) g/dL 6.4-8.2 ALBUMIN (test code = ALB) g/dL 3.4-5.0 BILIRUBIN TOTAL (test code = BILT) MG/DL <1.5 BILIRUBIN DIRECT (test code = BILD) MG/DL 0.0-0.30 SGOT/AST (test code = AST) IUnit/L 15-37 SGPT/ALT (test code = ALT) IUnit/L 15-65 ALKALINE PHOSPHATASE TOTAL (test code = ALKP) IUnit/L 20-125 [id number] 16:11:00* Test Item Value Reference Range Interpretation Comments LIPASE (test code = LIP) IUnit/L 73-393 HCG SERUM [id number] 16:11:00* Test Item Value Reference Range Interpretation Comments HCG SERUM QUAL (test code = HCGQL) SERUM NEGATIVE NEGATIVE BASIC METABOLIC [id number] 16:11:00* Test Item Value Reference Range Interpretation Comments SODIUM (test code = NA) 138 mEq/L 134-147 N POTASSIUM (test code = K) 4.3 mEq/L 3.4-5.0 N CHLORIDE (test code = CL) 103 mEq/L 100-108 N CARBON DIOXIDE (test code = CO2) 32 mEq/L 21-33 N ANION GAP (test code = GAP) 7 0-20 N GLUCOSE (test code = GLU) 159 mg/dL 70-110 H BLOOD UREA NITROGEN (test code = BUN) 19 mg/dL 7-18 H GLOMERULAR FILTRATION RATE (test code = GFR) 90-95 CREATININE (test code = CREAT) mg/dL 0.6-1.3 CALCIUM (test code = CA) 8.5 mg/dL 8.0-10.5 N HEPATIC FUNCTION [id number] 16:11:00* Test Item Value Reference Range Interpretation Comments TOTAL PROTEIN (test code = PROT) g/dL 6.4-8.2 ALBUMIN (test code = ALB) g/dL 3.4-5.0 BILIRUBIN TOTAL (test code = BILT) MG/DL <1.5 BILIRUBIN DIRECT (test code = BILD) MG/DL 0.0-0.30 SGOT/AST (test code = AST) IUnit/L 15-37 SGPT/ALT (test code = ALT) IUnit/L 15-65 ALKALINE PHOSPHATASE TOTAL (test code = ALKP) IUnit/L 20-125 [id number] 16:11:00* Test Item Value Reference Range Interpretation Comments LIPASE (test code = LIP) 100 IUnit/L 73-393 N HCG SERUM [id number] 16:11:00* Test Item Value Reference Range Interpretation Comments HCG SERUM QUAL (test code = HCGQL) SERUM NEGATIVE NEGATIVE CBC W/AUTO [id number] 16:00:00* Test Item Value Reference Range Interpretation Comments WHITE BLOOD CELL (test code = WBC) 7.90 x10 3/uL 4.5-11.0 N RED BLOOD CELL (test code = RBC) 4.75 x10 6/uL 3.54-5.02 N HEMOGLOBIN (test code = HGB) 13.0 g/dL 11.0-15.0 N HEMATOCRIT (test code = HCT) 41.4 % 33.0-45.0 N MEAN CELL VOLUME (test code = MCV) 87.2 fL 81.0-99.0 N MEAN CELL HGB (test code = MCH) 27.4 pg 27.0-33.0 N MEAN CELL HGB CONCETRATION (test code = MCHC) 31.4 g/dL 33.0-37. 0 L RED CELL DISTRIBUTION WIDTH CV (test code = RDW) 14.7 % 11.5- 14.5 H RED CELL DISTRIBUTION WIDTH SD (test code = RDW-SD) 47.4 fL 37 .0-54.0 N PLATELET COUNT (test code = PLT) 258 x10 3/uL 150-400 N MEAN PLATELET VOLUME (test code = MPV) 10.5 fL 7.0-9.0 H NEUTROPHIL % (test code = NT%) 63.3 % 56.0-77.0 N IMMATURE GRANULOCYTE % (test code = IG%) 0.4 % 0.0-2.0 N LYMPHOCYTE % (test code = LY%) 25.3 % 14.0-32.0 N MONOCYTE % (test code = MO%) 10.3 % 4.8-9.0 H EOSINOPHIL % (test code = EO%) 0.1 % 0.3-3.7 L BASOPHIL % (test code = BA%) 0.6 % 0.0-2.0 N NUCLEATED RBC % (test code = NRBC%) 0.0 % 0-0 N NEUTROPHIL # (test code = NT#) 5.00 x10 3/uL 2.0-7.6 N IMMATURE GRANULOCYTE # (test code = IG#) 0.03 x10 3/uL 0.00-0.03 N LYMPHOCYTE # (test code = LY#) 2.00 x10 3/uL 1.0-3.8 N MONOCYTE # (test code = MO#) 0.81 x10 3/uL 0.1-0.8 H EOSINOPHIL # (test code = EO#) 0.01 x10 3/uL 0.0-0.2 N BASOPHIL # (test code = BA#) 0.05 x10 3/uL 0.0-0.2 N NUCLEATED RBC # (test code = NRBC#) 0.00 x10 3/uL 0.0-0.1 N MANUAL DIFF REQUIRED (test code = MDIFF) NO SCR MAMM BILATERAL CAD [id number] 08:10:19 - SCR MAMM BILATERAL CAD DIGITALBILATERAL FIRST EVER DIGITAL SCREENING MAMMOGRAM WITH CAD: 03/12/2018CLINICAL: Asymptomatic. Current mammographic images were evaluated by either a [employer] M-Vu or a [employer] CAD (computer aided detection system). No prior exams were available for comparison. There are scattered fibroglandular tissues in both breasts. No suspicious mass, architectural distortion, malignant type calcification, or lymph node abnormality detected. IMPRESSION: NEGATIVEThere is no mammographic evidence of malignancy. Resume irving al screening mammography in one year. Pierre sims/miguel d:03/13/2018 08:10:19 Payable Manager: Stephanie CHAMBERLAIN, [facility] BIRADS 1-2 Normal Mammogram BI-RADS: 1 Negative
[2020-02-08] MEDS ORDERED: SODIUM CHLORIDE 0.9% 50ML 50 ML ONE (15:20)
[2020-02-08] MEDS ORDERED: IOPAMIDOL 370 MG/ML 200 ML INFUS..BTL INJ ONE (15:20)
[2020-02-08 15:53] LABS: BILIRUBIN,URINE NEGATIVE (NEGATIVE); CLARITY,URINE SL CLOUDY (CLEAR); COLOR,URINE YELLOW (YELLOW); KETONES,URINE NEGATIVE (NEGATIVE); LEUKOCYTE ESTERASE ,URINE NEGATIVE (NEGATIVE); NITRITE,URINE NEGATIVE (NEGATIVE); PROTEIN,URINE DIPSTICK NEGATIVE (NEGATIVE); URINE UROBILINOGEN 0.2 mg/dL (0.2 - 1)
--- NOTE | 2020-02-08 15:58 | Diagnostic Imaging Report ---
EXAM: CT Abdomen and Pelvis WITH intravenous contrast INDICATION: Abdominal pain COMPARISON: None. TECHNIQUE: Abdomen and pelvis were scanned utilizing a multidetector helical scanner from the lung base to the pubic symphysis after administration of IV contrast. Coronal and sagittal reformations were obtained. Routine protocol was performed. Scan was performed during portal venous phase. IV CONTRAST: 100mL of Isovue 370 ORAL CONTRAST: Gastrografin RADIATION DOSE: Total DLP: 768 mGy*cm Dose modulation, iterative reconstruction, and/or weight based adjustment of the mA/kV was utilized to reduce the radiation dose to as low as reasonably achievable. FINDINGS: LOWER THORAX: Right greater than left emphysema with severe bullous emphysema of the right middle lobe. No focal consolidation. Mild bibasilar dependent subsegmental atelectasis. HEPATOBILIARY: No focal liver lesion. No biliary ductal dilation. Unremarkable gallbladder. SPLEEN: No splenomegaly. PANCREAS: No focal masses or ductal dilatation. ADRENALS: No adrenal nodules. KIDNEYS/URETERS: No hydronephrosis, stones, or solid mass lesions. PELVIC ORGANS/BLADDER: Hysterectomy. PERITONEUM / RETROPERITONEUM: No free air or fluid. LYMPH NODES: No lymphadenopathy. VESSELS: Mild scattered atherosclerotic calcifications of the nonaneurysmal abdominal aorta and major branches. GI TRACT: No abnormal bowel thickening. No bowel obstruction. Normal appendix. BONES AND SOFT TISSUES: Prominent ventral abdominal hernia measures 8.0 x 4.7 x 8.5 cm with the defect measuring up to 4.6 cm in diameter. The hernia contains mesenteric fat without bowel. Approximately 2 cm further inferiorly, there is a separate smaller anterior abdominal wall defect which measures up to 1.8 cm and contains herniated fat. No acute osseous injury. No suspicious lytic or blastic lesions. IMPRESSION: Anterior abdominal wall hernias as above contain fat without herniated bowel. Right greater than left emphysema with severe bullous emphysema of the right middle lobe. Signed by: Orville Oswald MD on 02/08/2020 3:55 PM
[2020-02-08 16:05] LABS: BACTERIA,URINE MODERATE /HPF; EPITHELIAL CELLS,URINE MANY /LPF
--- NOTE | 2020-02-08 16:31 | Emergency Department Note ---
History of Present Illnes History of Present Illness Chief Complaint: Abdominal Complaints History of Present Illness This is a 59 year old female Chief Complaint Comment PT STATES SHE HAS HAD AN ABDOMINAL HERNIA SINCE JULY. PT STATES SHE NEEDS SURGERY, BUT HAS BEEN UNABLE TO DO SO DUE TO PANDEMIC. PT NOTES SHE HAS ABD PAIN, NAUSEA, AND PT ENDORSES A RASH TO HER FEET AND STATES SHE IS ALSO ITCHY ALL OVER. PT STATES SHE IS A CURRENT SMOKER. EMS STATES PT HAD AN O2 SAT OF 91% ON RA ON SCENE. . 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: O2 Onset (how long ago): week(s) (2) Location: ABD Quality: DULL Radiation: Denies non-radiation, Denies back, Denies neck, Denies extremity, Denies abdomen, Denies periumbilical, Denies flank, Denies proximal, Denies distal, Denies other Severity: moderate Onset quality: gradual Duration (how long): week(s) (2) Timing of current episode: constant, intermittent Progression: waxing and waning Chronicity: new Context: Denies recent illness, Denies recent surgery, Denies recent immobilization, Denies recent travel, Denies trauma/injury, Denies new medications, Denies hx of DVT/PE, Denies non-compliance w/ medications, Denies other Relieving factors: none Exacerbating factors: none Associated symptoms: Reports denies other symptoms Past Medical/Family History Physician Review I have reviewed the patient's past medical and family history. Any updates have been documented here. Past Medical History Recent Fever: No Clinical Suspicion of Infectio: No New/Unexplained Change in Ment: No Past Medical History: Diabetes, COPD Other Medical History: CHRONIC PAIN Bipolar Depression/anxiety Respiratory failure Other Surgery: Ablation for WPW Social History Smoking Cessation: Current every day smoker Counseling Performed: Yes Alcohol Use: Occasional Any Illegal Drug Use: No Other Last Tetanus: OOD Review of Systems Review of Systems Constitutional: Reports no symptoms EENTM: Reports no symptoms Cardiovascular: Reports no symptoms Respiratory: Reports no symptoms Gastrointestinal: Reports as per HPI Genitourinary: Reports no symptoms Musculoskeletal: Reports no symptoms Integumentary: Reports no symptoms; Denies as per HPI, Denies change in color, Denies change in hair/nails, Denies dryness, Denies lesions, Denies lumps, Denies rash, Denies poor turgor, Denies ecchymosis, Denies other Neurological: Reports no symptoms Psychological: Reports no symptoms Endocrine: Reports no symptoms Hematological/Lymphatic: Reports no symptoms Physical Exam Related Data Allergies: Coded Allergies: Penicillins (Verified Allergy, Unknown, 02/08/20) ibuprofen (Verified Adverse Reaction, Intermediate, VOMITING, DIARRHEA, 10/29/16) Uncoded Allergies: iv contrast (Allergy, Mild, itching and welts, 02/08/20) Triage Vital Signs Vital Signs Date Time Temp Pulse Resp B/P (MAP) Pulse Ox O2 Delivery O2 Flow Rate FiO2 02/08/20 13:34 98.6 103 22 126/99 95 Room Air 02/08/20 16:28 2.0 Vital signs reviewed: Yes Physical Exam CONSTITUTIONAL Constitutional: Present well-developed, Present well-nourished HENT HENT: Present normocephalic, Present atraumatic, Present oropharynx clear/mois t, Present nose normal HENT L/R: Present left ext ear normal, Present right ext ear normal EYES Eyes: Reports PERRL, Reports conjunctivae normal NECK Neck: Present ROM normal PULMONARY Pulmonary: Present effort normal, Present breath sounds normal CARDIOVASCULAR Cardiovascular: Present regular rhythm, Present heart sounds normal, Present capillary refill normal, Present normal rate GASTROINTESTINAL Abdominal: Present soft, Present nontender, Present bowel sounds normal, Present other (HERNIA VENTRAL) GENITOURINARY Genitourinary: Present exam deferred SKIN Skin: Present warm, Present dry MUSCULOSKELETAL Musculoskeletal: Present ROM normal NEUROLOGICAL Neurological: Present alert, Present oriented x 3, Present no gross motor or sensory deficits PSYCHOLOGICAL Psychological: Present mood/affect normal, Present judgement normal Results Laboratory Result Diagram: 02/08/20 1343 02/08/20 1343 Laboratory Laboratory Tests Test 02/08/20 15:42 02/08/20 13:43 Urine Color Yellow (YELLOW) Urine Clarity Sl cloudy (CLEAR) Urine pH 5.5 (5 - 7) Urine Specific [place] 1.015 (1.010-1.025) Urine Protein Negative (NEGATIVE) Urine Glucose (UA) Negative (NEGATIVE) Urine Ketones Negative (NEGATIVE) Urine Blood Negative (NEGATIVE) Urine Nitrite Negative (NEGATIVE) Urine Bilirubin Negative (NEGATIVE) Urine Urobilinogen 0.2 mg/dL (0.2 - 1) Urine Leukocyte Esterase Negative (NEGATIVE) Urine RBC None /HPF (0-5) Urine WBC None /HPF (0-5) Urine Epithelial Cells Many /LPF (NONE) Urine Bacteria Moderate /HPF (NONE) White Blood Count 10.75 x10e3/uL (4.8-10.8) Red Blood Count 5.34 x10e6/uL (3.6-5.1) Hemoglobin 13.4 g/dL (12.0-16.0) Hematocrit 43.7 % (34.2-44.1) Mean Corpuscular Volume 81.8 fL (81-99) Mean Corpuscular Hemoglobin 25.1 pg (28-32) Mean Corpuscular Hemoglobin Concent 30.7 g/dL (31-35) Red Cell Distribution Width 17.1 % (11.7-14.4) Platelet Count 223 x10e3/uL (140-360) Neutrophils (%) (Auto) 71.2 % (38.7-80.0) Lymphocytes (%) (Auto) 20.4 % (18.0-39.1) Monocytes (%) (Auto) 7.7 % (4.4-11.3) Eosinophils (%) (Auto) 0.0 % (0.0-6.0) Basophils (%) (Auto) 0.3 % (0.0-1.0) Neutrophils # (Auto) 7.7 (2.1-6.9) Lymphocytes # (Auto) 2.2 (1.0-3.2) Monocytes # (Auto) 0.8 (0.2-0.8) Eosinophils # (Auto) 0.0 (0.0-0.4) Basophils # (Auto) 0.0 (0.0-0.1) Absolute Immature Granulocyte (auto 0.04 x10e3/uL (0-0.1) Sodium Level 140 mmol/L (136-145) Potassium Level 4.4 mmol/L (3.5-5.1) Chloride Level 102 mmol/L (98-107) Carbon Dioxide Level 27 mmol/L (22-29) Anion Gap 15.4 mmol/L (8-16) Blood Urea Nitrogen 18 mg/dL (7-26) Creatinine 0.80 mg/dL (0.57-1.11) Estimat Glomerular Filtration Rate > 60 ML/MIN (60-) BUN/Creatinine Ratio 23 (6-25) Glucose Level 132 mg/dL (74-118) Calcium Level 9.7 mg/dL (8.4-10.2) Total Bilirubin 0.3 mg/dL (0.2-1.2) Aspartate Amino Transf (AST/SGOT) 19 IU/L (5-34) Alanine Aminotransferase (ALT/SGPT) 12 IU/L (0-55) Alkaline Phosphatase 85 IU/L (40-150) Total Protein 7.0 g/dL (6.5-8.1) Albumin 4.1 g/dL (3.5-5.0) Globulin 2.9 g/dL (2.3-3.5) Albumin/Globulin Ratio 1.4 (0.8-2.0) Amylase Level 14 U/L (25-125) Lipase 10 U/L (8-78) Lab results reviewed: Yes Imaging Imaging results reviewed: Yes Assessment & Plan Medical Decision Making MDM SBO HERNIA Reassessment Reassessment time: 16:31 Reassessment BETTER Assessment & Plan Final Impression: (1) Abdominal pain (2) Hernia, ventral Depart Disposition: HOME, SELF-CARE Last Vital Signs Date Time Temp Pulse Resp B/P (MAP) Pulse Ox O2 Delivery O2 Flow Rate FiO2 02/08/20 16:28 98.1 95 16 113/74 100 Nasal Cannula 2.0 Home Meds Reported Medications Sertraline Hcl (SERTRALINE HCL) 50 Mg Tablet, 50 MG PO DAILY, #30 TAB 07/28/16 Triazolam (TRIAZOLAM) 0.125 Mg Tablet, 1 TAB PO HS PRN for SL 02/28/14 Buprenorphine (BUTRANS) 1 Each Patch.tdwk, 15 TD 02/28/14 Baclofen (BACLOFEN) 20 Mg Tablet, 20 MG PO TID 02/28/14 Pregabalin (LYRICA) 200 Mg Capsule, 200 MG PO TID 02/28/14 Promethazine Hcl (PROMETHAZINE HCL) 25 Mg Tablet, 25 MG PO TID PRN for NAUSEA, TAB 02/28/14 Medications in the ED Morphine Sulfate 2 mg ONCE PRN IV STA; Start 02/08/20 at 14:00; Stop 02/08/20 at 14:08; Status DC Ondansetron HCl 4 mg NOW STAT IV Last administered on 02/08/20at 14:12; Admin Dose 4 MG; Start 02/08/20 at 13:59; Stop 02/08/20 at 14:06; Status DC Morphine Sulfate 2 mg ONCE PRN IV STA Last administered on 02/08/20at 14:12; Admin Dose 2 MG; Start 02/08/20 at 14:15; Stop 02/15/20 at 13:59 Diatrizoate Meglum/ Diatrizoate Sod 30 ml STK-MED ONCE PO ; Start 02/08/20 at 14:24; Stop 02/08/20 at 14:18; Status DC Sodium Chloride 50 ml @ ud STK-MED ONCE .ROUTE ; Start 02/08/20 at 15:20; Stop 02/08/20 at 15:12; Status DC Iopamidol 74,000 mg STK-MED ONCE INJ ; Start 02/08/20 at 15:20; Stop 02/08/20 at 15:13; Status DC ALLAN FIELDS MD Feb 08, 2020 16:31
== END 2020-02-08 17:07 | disposition home or self-care (01) ==
LOC: ER 15:16
DX: R10.9 Unspecified abdominal pain (principal); K43.9 Ventral hernia without obstruction or gangrene; E11.9 Type 2 diabetes mellitus without complications; J44.9 Chronic obstructive pulmonary disease, unspecified; G89.29 Other chronic pain; F31.9 Bipolar disorder, unspecified; F17.210 Nicotine dependence, cigarettes, uncomplicated
CPT/HCPCS: 36415; 74177; 80053; 81001; 82150; 83690; 85025; 93005; 99284; J2270; J2405; Q9967